=== PATIENT | female | born 1950 | race Caucasian/White ===

== ENCOUNTER 2016-11-04 18:26 | Emergency (ER) | payer BC, OTHER ==
[~2016-11-04] VITALS: Ht 175.3 cm; Wt 65.0 kg
[~2016-11-04 18:26] MED LIST: ASPI81 PO; AUGM875 PO
[2016-11-04 18:27] VITALS: BP 132/76; PULSE 60; RESP 20; TEMP 97.4; O2SAT 100
--- NOTE | 2016-11-04 20:10 | RADRPT ---
EXAM DATE/TIME: 11/04/2016 20:04 [place] COMPARISON: No previous studies available for comparison. INDICATIONS : Abdominal pain with vomiting. MEDICAL HISTORY : None. SURGICAL HISTORY : None. ENCOUNTER: Initial ACUITY: 1 day PAIN SCORE: 10/10 LOCATION: Right lower quadrant FINDINGS: Moderate stool throughout the colon. Nonobstructive pattern. No free air. 2 x 4 mm calculus projects over the lower pole of the right kidney. There are numerous calcifications within the pelvic cavity, probably all phleboliths. CONCLUSION: 1. No obstruction or free air. 2. Moderate stool throughout the colon. 3. Probable small stone of the lower pole of the right kidney. Cole Elliott MD on November 04, 2016 at 20:08 Board Certified Radiologist. This report was verified electronically.
--- NOTE | 2016-11-04 20:30 | PD ---
HPI Chief Complaint: Abdominal Pain Time Seen by Provider: 20:26 Travel History International Travel<30 days: Yes Contact w/Intl Traveler<30days: Yes Name of Country Traveled to: [place] Traveled to known affect area: No History of Present Illness HPI Patient is a 66-year-old female presented to the emergency department evaluation of abdominal pain, nausea, vomiting. Patient states it started approximately 12:30 this afternoon, initially she had a gassy feeling. She vomited once and then felt better, she was able to walk her dog for a mile, upon return home the pain started again and she vomited again. Again the pain was relieved after vomiting. Pain started up a third time upon arrival to the hospital. Patient vomited a total of 3 times today. states that she was doubled up in pain. Patient reports the pain when it occurs is a 9 out of 10 and describes it as a gnawing ache. She reports it localized in the right lower quadrant. Patient denies any recent sick contacts or contaminated foods. She states her and her have been eating the same thing for the last 5 days. [facility] Past Medical History Medical History: Denies Significant Hx ?: Not Menopausal: Yes Past Surgical History Surgical History: No Previous Surgery Other Surgery: Yes (BREAST CALCIFICATION SX 18 YRS AGO) Family History Family History: Negative Social History Alcohol Use: No Tobacco Use: No Substance Use: No Allergies-Medications (Allergen,Severity, Reaction): Coded Allergies: No Known Allergies (Verified , 12/25/10) Reported Meds & Prescriptions Reported Meds & Active Scripts Active Zofran Odt (Ondansetron Odt) 4 Mg Tab 4 Mg SL Q6HR PRN Review of Systems Except as stated in HPI: all other systems reviewed are Neg General / Constitutional: No: Fever, Chills HENT: Positive: Lightheadedness (after vomiting), No: Headaches Cardiovascular: No: Chest Pain or Discomfort Respiratory: No: Shortness of Breath Gastrointestinal: Positive: Nausea, Vomiting, Abdominal Pain, No: Constipation , Loss of Appetite Genitourinary: No: Frequency, Dysuria, Pelvic Pain, Flank Pain Neurologic: No: Dizziness Physical Exam Narrative GENERAL: Well-developed, well-nourished, alert female. Resting comfortably in no acute distress. SKIN: Warm and dry. HEAD: Atraumatic. Normocephalic. EYES: Pupils equal and round. No scleral icterus. No injection or drainage. ENT: No nasal bleeding or discharge. Mucous membranes pink and moist. NECK: Trachea midline. No JVD. CARDIOVASCULAR: Regular rate and rhythm. No murmur appreciated. RESPIRATORY: No accessory muscle use. Clear to auscultation. Breath sounds equal bilaterally. GASTROINTESTINAL: Abdomen soft, non-tender, nondistended. Hepatic and splenic margins not palpable. MUSCULOSKELETAL: No obvious deformities. No clubbing. No cyanosis. No edema. No CVAT bilaterally. NEUROLOGICAL: Awake and alert. No obvious cranial nerve deficits. Motor grossly within normal limits. Normal speech. PSYCHIATRIC: Appropriate mood and affect; insight and judgment normal. Data Data Last Documented VS Vital Signs Date Time Temp Pulse Resp B/P Pulse Ox O2 Delivery O2 Flow Rate FiO2 11/04/16 18:27 97.4 60 20 132/76 100 Orders Complete Blood Count With Diff (11/04/16 19:37) Comprehensive Metabolic Panel (11/04/16 19:37) Lipase (11/04/16 19:37) Urinalysis - C+S If Indicated (11/04/16 19:37) Abdomen, Kub Only (11/04/16 19:37) Labs Laboratory Tests Test 11/04/16 20:15 White Blood Count 10.1 TH/MM3 Red Blood Count 4.58 MIL/MM3 Hemoglobin 13.7 GM/DL Hematocrit 40.5 % Mean Corpuscular Volume 88.5 FL Mean Corpuscular Hemoglobin 29.8 PG Mean Corpuscular Hemoglobin 33.7 % Concent Red Cell Distribution Width 13.0 % Platelet Count 231 TH/MM3 Mean Platelet Volume 8.7 FL Neutrophils (%) (Auto) 86.1 % Lymphocytes (%) (Auto) 9.0 % Monocytes (%) (Auto) 4.3 % Eosinophils (%) (Auto) 0.1 % Basophils (%) (Auto) 0.5 % Neutrophils # (Auto) 8.7 TH/MM3 Lymphocytes # (Auto) 0.9 TH/MM3 Monocytes # (Auto) 0.4 TH/MM3 Eosinophils # (Auto) 0.0 TH/MM3 Basophils # (Auto) 0.0 TH/MM3 CBC Comment DIFF FINAL Differential Comment Urine Color YELLOW Urine Turbidity HAZY Urine pH 7.0 Urine Specific [place] 1.015 Urine Protein TRACE mg/dL Urine Glucose (UA) NEG mg/dL Urine Ketones 40 mg/dL Urine Occult Blood SMALL Urine Nitrite NEG Urine Bilirubin NEG Urine Urobilinogen LESS THAN 2.0 MG/DL Urine Leukocyte Esterase NEG Urine RBC 44 /hpf Urine WBC 1 /hpf Urine Squamous Epithelial <1 /hpf Cells Urine Amorphous Sediment MOD Urine Mucus FEW /lpf Microscopic Urinalysis Comment CULT NOT INDICATED Sodium Level 139 MEQ/L Potassium Level 4.1 MEQ/L Chloride Level 104 MEQ/L Carbon Dioxide Level 26.5 MEQ/L Anion Gap 9 MEQ/L Blood Urea Nitrogen 16 MG/DL Creatinine 0.97 MG/DL Estimat Glomerular Filtration 58 ML/MIN Rate Random Glucose 108 MG/DL Calcium Level 9.1 MG/DL Total Bilirubin 0.6 MG/DL Aspartate Amino Transf 20 U/L (AST/SGOT) Alanine Aminotransferase 27 U/L (ALT/SGPT) Alkaline Phosphatase 86 U/L Total Protein 7.3 GM/DL Albumin 3.9 GM/DL Lipase 301 U/L [facility] Medical Decision Making Medical Screen Exam Complete: Yes Emergency Medical Condition: Yes Interpretation(s) Vital Signs Date Time Temp Pulse Resp B/P Pulse Ox O2 Delivery O2 Flow Rate FiO2 11/04/16 18:27 97.4 60 20 132/76 100 Differential Diagnosis Kidney stone versus diverticulitis versus obstruction versus gastroenteritis versus other Narrative Course Patient is a 66-year-old female presenting to emergency evaluation of abdominal pain with associated nausea and vomiting. Symptoms started approximately 12:30 this afternoon. Patient is currently asymptomatic however she has had periods of relief throughout the afternoon. Patient states the pain comes on abruptly and is relieved after vomiting. Labs and imaging were ordered. Workup was initiated in triage, care patient be transferred to provide her with a medical bed is available. Scripts Ondansetron Odt (Zofran Odt)4 Mg Tab4 Mg SL Q6HR PRN (Nausea/Vomiting) #5 TAB Ref 0 Prov:Ephraim Grimaldo MD 11/04/16 Esha Lopez Nov 04, 2016 20:30
[2016-11-04 20:50] LABS: BLOOD, URINE SMALL (NEG); GLUCOSE,URINE NEG (NEG); KETONE, URINE 40 mg/dL (NEG); MUCUS URINE FEW /lpf (OCC); NITRITE,URINE NEG (NEG); SQUAMOUS EPITHELIAL CELL URINE <1 /hpf (0-5); URINE COLOR YELLOW (YELLW/STRAW)
[2016-11-04 20:51] LABS: AUTOMATED NEUTROPHIL # 8.7 TH/MM3 (1.8-7.7); BASOPHIL % 0.5 % (0.0-2.0); COMMENT (UR) CULT NOT INDICATED; CULTURE IF INDICATED CULT NOT INDICATED; EOSINOPHIL % 0.1 % (0.0-4.0); HEMATOCRIT 40.5 % (35.0-46.0); HEMO FLAGS DIFF FINAL; LYMPHOCYTE # 0.9 TH/MM3 (1.0-4.8); MEAN CELL VOLUME 88.5 FL (80.0-100.0); MEAN CORPUSCULAR HEMOGLOBIN 29.8 PG (27.0-34.0); MEAN CORPUSCULAR HGB CONC 33.7 % (32.0-36.0); MONO % 4.3 % (0.0-8.0); NEUT % 86.1 % (16.0-70.0); PLATELET COUNT 231 TH/MM3 (150-450); RED BLOOD COUNT 4.58 MIL/MM3 (4.00-5.30); WHITE BLOOD COUNT 10.1 TH/MM3 (4.0-11.0)
[2016-11-04 21:04] LABS: ANION GAP 9 MEQ/L (5-15); AST (GOT) 20 U/L (15-37); BICARBONATE 26.5 MEQ/L (21.0-32.0); BLOOD UREA NITROGEN 16 MG/DL (7-18); CHLORIDE 104 MEQ/L (98-107); GLOMERULAR FILTRATION RATE 58 ML/MIN (>89); POTASSIUM 4.1 MEQ/L (3.5-5.1); SODIUM (NA) 139 MEQ/L (136-145)
[2016-11-04 21:08] LABS: ALKALINE PHOSPHATASE 86 U/L (45-117); ALT (GPT) 27 U/L (10-53); TOTAL BILIRUBIN ADULT 0.6 MG/DL (0.2-1.0)
[2016-11-04] MEDS ORDERED: ZOFR4TAB3 SL (21:45)
--- NOTE | 2016-11-04 21:45 | PD ---
Physical Exam Date Seen by Provider: Nov 04, 2016 Time Seen by Provider: 21:30 Narrative 66-year-old female with history of no significant past medical issues, here because of sudden onset right sided abdominal pain which initiated at an 8 out of 10, waxing and waning in nature accompanied by nausea and vomiting. She denies any fevers, diarrhea, or other symptoms. She states that since she has been in the ER, the pain has gone away completely. She does not know any sick contacts, bad food exposure. Workup was initiated in triage by PA. Modifying Factors: None Associated Signs & Symptoms: Right side abdominal pain with nausea and vomiting Risk Factors: None GENERAL: Well-nourished, well-developed pleasant elderly white female patient in no acute distress. SKIN: Warm and dry. HEAD: Normocephalic. EYES: No scleral icterus. No injection or drainage. NECK: Supple, trachea midline. CARDIOVASCULAR: Regular rate and rhythm without murmurs, gallops, or rubs. RESPIRATORY: Breath sounds equal bilaterally. No accessory muscle use. GASTROINTESTINAL: Abdomen soft, non-tender, nondistended. Benign. MUSCULOSKELETAL: No cyanosis, or edema. BACK: Nontender without obvious deformity. No CVA tenderness. Data Data Last Documented VS Vital Signs Date Time Temp Pulse Resp B/P Pulse Ox O2 Delivery O2 Flow Rate FiO2 11/04/16 18:27 97.4 60 20 132/76 100 Orders Complete Blood Count With Diff (11/04/16 19:37) Comprehensive Metabolic Panel (11/04/16 19:37) Lipase (11/04/16 19:37) Urinalysis - C+S If Indicated (11/04/16 19:37) Abdomen, Kub Only (11/04/16 19:37) Labs Laboratory Tests Test 11/04/16 20:15 White Blood Count 10.1 TH/MM3 Red Blood Count 4.58 MIL/MM3 Hemoglobin 13.7 GM/DL Hematocrit 40.5 % Mean Corpuscular Volume 88.5 FL Mean Corpuscular Hemoglobin 29.8 PG Mean Corpuscular Hemoglobin 33.7 % Concent Red Cell Distribution Width 13.0 % Platelet Count 231 TH/MM3 Mean Platelet Volume 8.7 FL Neutrophils (%) (Auto) 86.1 % Lymphocytes (%) (Auto) 9.0 % Monocytes (%) (Auto) 4.3 % Eosinophils (%) (Auto) 0.1 % Basophils (%) (Auto) 0.5 % Neutrophils # (Auto) 8.7 TH/MM3 Lymphocytes # (Auto) 0.9 TH/MM3 Monocytes # (Auto) 0.4 TH/MM3 Eosinophils # (Auto) 0.0 TH/MM3 Basophils # (Auto) 0.0 TH/MM3 CBC Comment DIFF FINAL Differential Comment Urine Color YELLOW Urine Turbidity HAZY Urine pH 7.0 Urine Specific [place] 1.015 Urine Protein TRACE mg/dL Urine Glucose (UA) NEG mg/dL Urine Ketones 40 mg/dL Urine Occult Blood SMALL Urine Nitrite NEG Urine Bilirubin NEG Urine Urobilinogen LESS THAN 2.0 MG/DL Urine Leukocyte Esterase NEG Urine RBC 44 /hpf Urine WBC 1 /hpf Urine Squamous Epithelial <1 /hpf Cells Urine Amorphous Sediment MOD Urine Mucus FEW /lpf Microscopic Urinalysis Comment CULT NOT INDICATED Sodium Level 139 MEQ/L Potassium Level 4.1 MEQ/L Chloride Level 104 MEQ/L Carbon Dioxide Level 26.5 MEQ/L Anion Gap 9 MEQ/L Blood Urea Nitrogen 16 MG/DL Creatinine 0.97 MG/DL Estimat Glomerular Filtration 58 ML/MIN Rate Random Glucose 108 MG/DL Calcium Level 9.1 MG/DL Total Bilirubin 0.6 MG/DL Aspartate Amino Transf 20 U/L (AST/SGOT) Alanine Aminotransferase 27 U/L (ALT/SGPT) Alkaline Phosphatase 86 U/L Total Protein 7.3 GM/DL Albumin 3.9 GM/DL Lipase 301 U/L [facility] Medical Record Reviewed: Yes Supervised Visit with SONIA: No Interpretation(s) Laboratory Tests Test 11/04/16 20:15 Neutrophils (%) (Auto) 86.1 % (16.0-70.0) Neutrophils # (Auto) 8.7 TH/MM3 (1.8-7.7) Lymphocytes # (Auto) 0.9 TH/MM3 (1.0-4.8) Urine Turbidity HAZY (CLEAR) Urine Ketones 40 mg/dL (NEG) Urine Occult Blood SMALL (NEG) Urine RBC 44 /hpf (0-3) Urine Mucus FEW /lpf (OCC) Estimat Glomerular Filtration 58 ML/MIN (>89) Rate Random Glucose 108 MG/DL (74-106) Last 24 hours Impressions Abdomen X-Ray 11/04/16 193 Signed Impressions: Service Date/Time: Friday, November 04, 2016 20:04 - CONCLUSION: 1. No obstruction or free air. 2. Moderate stool throughout the colon. 3. Probable small stone of the lower pole of the right kidney. Cole Elliott MD Differential Diagnosis Right sided abdominal pain, nausea and vomitingrenal colic versus gastroenteritis versus musculoskeletal versus appendicitis Narrative Course Abdomen is benign and I do not suspect an acute intra-abdominal process. CAT scan did not show any signs of acute processes. Her pain is gone away. I do see a little bit of blood in her urine and I am wondering if she may have passed a kidney stone. I do not suspect an acute appendicitis in this case with normal lab work, symptoms, and completely benign abdomen. At this point, my plan would be to release her and have her follow-up as needed with primary care physician. Return for any worsening in symptoms. The plan has been discussed with her and she states understanding. Diagnosis Primary Impression: UNSPECIFIED ABDOMINAL PAIN Med/Other Pt SpecificInfo: Prescription(s) given Scripts Ondansetron Odt (Zofran Odt)4 Mg Tab4 Mg SL Q6HR PRN (Nausea/Vomiting) #5 TAB Ref 0 Prov:Ephraim Grimaldo MD 11/04/16 Disposition: 01 DISCHARGE HOME Condition: Stable Ephraim Grimaldo MD Nov 04, 2016 21:45
== END 2016-11-04 22:04 | disposition home or self-care (01) ==
LOC: NEPE 18:26
DX: R10.31 Right lower quadrant pain (principal); R11.2 Nausea with vomiting, unspecified
CPT/HCPCS: 74000; 80053; 81001; 83690; 85025; 99284